=== PATIENT | female | born 1985 | race Caucasian/White ===

== ENCOUNTER 2020-07-01 15:25 | Outpatient (CLI) | payer OTHER ==
--- NOTE | 2020-07-01 16:44 | Ultrasound Report ---
PROCEDURE: OB First Trimester INDICATIONS: Positive test OUTSIDE/PRIOR DATING DATA: Last menstrual period (LMP): 05/12/2020. LMP-based estimated date of delivery (AMANDA): 02/16/2021. First dating scan (date and location): 07/01/2020. Estimated date of delivery (AMANDA) from first dating scan: 02/12/2021. TECHNIQUE: Real-time scanning was performed of the fetus and maternal pelvic organs, with image documentation. COMPARISON: None. FINDINGS: Embryo: There is a gestational sac at the uterine fundus measuring 4 cm, corresponding to gestationa l age of 9 weeks 3 days. Within the gestational sac there is an embryo with a crown-rump length of 1. 4 cm, corresponding to gestational age of 7 weeks 5 days.. Heart rate is detected at 168 bpm. Measurement variability in dating: +/- 4 weeks by LMP, +/- 7 days by mean sac diameter (use before 6 weeks gestation if crown-rump length not able to be measured), +/- 5 days by crown-rump length (6-12 weeks gestation). Maternal organs: Right ovary is normal. Left corpus luteum cyst noted. IMPRESSION: Single live intrauterine gestation with ultrasound estimated gestational age 7 weeks 5 days on the ba sis of the crown-rump length. Reviewed by: Surya Muñoz MD on 07/01/2020 4:42 PM PDT Approved by: Surya Muñoz MD on 07/01/2020 4:42 PM PDT Station ID: [id number]
== END 2020-07-01 15:26 | disposition home or self-care (01) ==
LOC: DI 15:25
PROVIDERS: ATTEND Nurse Practitioner Obstetrics & Gynecology
DX: Z32.01 Encounter for pregnancy test, result positive (principal)

== ENCOUNTER 2020-07-07 14:06 | Outpatient (CLI) | payer OTHER ==
[2020-07-07 16:28] LABS: MUDS CUTOFF CONCENTRATIONS CUTOFF CONC BELOW:
[2020-07-07 16:39] LABS: BILIRUBIN,URINE NEGATIVE (NEGATIVE); GLUCOSE, URINE (UA) NEGATIVE (NEGATIVE); KETONES,URINE (UA) NEGATIVE (NEGATIVE); LEUKOCYTE ESTERASE, URINE NEGATIVE (NEGATIVE); NITRITE,URINE NEGATIVE (NEGATIVE); OCCULT BLOOD,URINE NEGATIVE (NEGATIVE); PROTEIN,URINE NEGATIVE (NEGATIVE); UROBILINOGEN,URINE 0.2 (NORMAL) E.U./dL (NORMAL)
[2020-07-07 16:46] LABS: CLARITY,URINE CLEAR (CLEAR)
[2020-07-07 16:48] LABS: AMPHETAMINE SCREEN,URINE NEGATIVE (NEGATIVE); BARBITURATE SCREEN,UR NEGATIVE (NEGATIVE); BENZODIAZEPINES SCREEN, URINE NEGATIVE (NEGATIVE); COCAINE SCREEN URINE NEGATIVE (NEGATIVE); METHADONE SCREEN, URINE NEGATIVE (NEGATIVE); METHAMPHETAMINES SCREEN, URINE NEGATIVE (NEGATIVE); OPIATE SCREEN, URINE NEGATIVE (NEGATIVE); OXYCODONE SCREEN, URINE NEGATIVE (NEGATIVE); PROPOXYPHENE SCREEN, URINE NEGATIVE (NEGATIVE); THC CANNABINOID SCREEN, URINE NEGATIVE (NEGATIVE); TRICYCLIC ANTIDEPRESSANT,URINE NEGATIVE (NEGATIVE)
[2020-07-07 17:15] LABS: RBC,URINE None Seen /HPF (0-5); SQUAMOUS EPITHELIAL CELL,UR RARE Squamous (<= Few); WBC,URINE 0-3 /HPF (0-5)
[2020-07-07 17:16] LABS: BACTERIA,URINE None Seen /HPF (None Seen)
[2020-07-07 21:09] LABS: CHLAMYDIA TRACHOMATIS DNA NEGATIVE (NEGATIVE); NEISSERIA GONORRHOEAE DNA NEGATIVE (NEGATIVE); TRICHOMONAS VAGINALIS DNA NEGATIVE (NEGATIVE)
== END 2020-07-07 23:59 | disposition home or self-care (01) ==
LOC: LAB.R 14:06
PROVIDERS: ATTEND Obstetrics & Gynecology
DX: Z36.89 Encounter for other specified antenatal screening (principal)
CPT/HCPCS: 80306; 81001; 87086; 87491; 87591; 87661

== ENCOUNTER 2020-08-04 08:00 | Outpatient (CLI) | payer OTHER ==
[2020-08-04 18:02] LABS: BASOPHILS % (AUTO) 0.4 %; EOSINOPHILS # (AUTO) 0.1 10^3/uL (0.0-0.7); EOSINOPHILS % (AUTO) 1.9 %; HCT - HEMATOCRIT 36.3 % (37.0-47.0); HGB - HEMOGLOBIN 12.2 g/dL (12.0-16.0); LYMPHOCYTES # (AUTO) 1.6 10^3/uL (1.5-3.5); LYMPHOCYTES % (AUTO) 21.2 %; MEAN CORPUSCULAR HEMOGLOBIN 31.4 pg (27.0-31.0); MEAN CORPUSCULAR HGB CONC 33.6 g/dL (32.0-36.0); MEAN CORPUSCULAR VOLUME 93.3 fL (81.0-99.0); MEAN PLATELET VOLUME 10.2 fL (7.9-10.8); MONOCYTES # (AUTO) 0.4 10^3/uL (0.0-1.0); MONOCYTES % (AUTO) 5.9 %; NEUTROPHILS # (AUTO) 5.2 10^3/uL (1.5-6.6); NEUTROPHILS % (AUTO) 70.2 %; PLT - PLATELET COUNT 263 10^3/uL (130-450); RED BLOOD COUNT 3.89 10^6/uL (4.20-5.40); WHITE BLOOD COUNT 7.4 x10^3/uL (4.8-10.8)
[2020-08-05 12:50] LABS: HEPATITIS B SURFACE ANTIGEN NON-REACTIVE (NON-REACTIVE); HEPATITIS C ANTIBODY NON-REACTIVE (NON-REACTIVE)
[2020-08-05 15:16] LABS: HIV AG/AB 4TH GEN NON-REACTIVE (NON-REACTIVE)
== END 2020-08-04 23:59 | disposition home or self-care (01) ==
LOC: LAB.WCP 08:00
PROVIDERS: ATTEND Obstetrics & Gynecology
DX: Z34.80 Encounter for supervision of other normal pregnancy, unspecified trimester (principal); Z36.89 Encounter for other specified antenatal screening
CPT/HCPCS: 36415; 85025; 86592; 86762; 86787; 86803; 86850; 86900; 86901; 87340; 87389

== ENCOUNTER 2020-09-23 08:00 | Outpatient (CLI) | payer OTHER | END 2020-09-23 23:59 | disposition home or self-care (01) | LOC: LAB.WCP 08:00 | PROVIDERS: ATTEND Obstetrics & Gynecology | DX: Z34.80 Encounter for supervision of other normal pregnancy, unspecified trimester (principal) | CPT/HCPCS: 36415; 81220; 81599; 82105 ==

== ENCOUNTER 2020-09-29 15:25 | Outpatient (CLI) | payer OTHER ==
--- NOTE | 2020-09-30 17:27 | Ultrasound Report ---
PROCEDURE: OB Detailed Eval INDICATIONS: SUPERVISION OF OUTSIDE/PRIOR DATING DATA: Last menstrual period (LMP): 05/12/2020. LMP-based estimated date of delivery (AMANDA): 02/16/2021. First dating scan (date and location): 07/01/2020. Estimated date of delivery (AMANDA) from first dating scan: 02/12/2021. The below data below was generated using the above AMANDA of 02/12/2021 TECHNIQUE: Real-time scanning was performed of the fetus, with image documentation and biometric measurements. Endovaginal scanning: Not needed COMPARISON: 07/01/2020 OB ultrasound FINDINGS: General: A single living intrauterine gestation is present. Presentation: Variable at this time Placenta: Placental position is posterior, without previa. Amniotic fluid index: 13.0 cm, normal for gestational age. heart rate: 160 beats per minute. Maternal cervical canal: 6.2 cm long; normal length is 2.5 cm or more. biometrics: Biparietal diameter: 4.8 cm, 20 weeks 3 days Head circumference: 17.7 cm, 20 weeks 1 day Abdominal circumference: 14.7 cm, 20 weeks 0 days Femur length: 3.7 cm, 21 weeks 4 days Estimated gestational age from initial scan: 20 weeks 2 days. Composite gestational age from present scan: 20 weeks 2 days Estimated weight and percentile: 3677 g, 66th percentile Measurement variability in biometric dating: +/- 10 days from 12-20 weeks gestation, +/- 2 weeks from 20-30 weeks gestation, +/- 3 weeks at 30 weeks gestation or later. Anatomic survey: Neuro: Ventricles are normal at less than 10 mm. Cisterna magna is normal at 3-11 mm. Cerebellum i s normal in size and morphology. Nuchal skin fold: Normal at less than 6 mm between 14 and 20 weeks gestational age. Face: Nose and lips, facial profile are normal. Spine: No evidence for spina bifida. Heart: 4-chambered heart is present, with normal ventricular outflow tracts. Diaphragm: Diaphragm is intact. Stomach: Left-sided stomach is present. Kidneys: No hydronephrosis. Normal is less than 5 mm in 2nd trimester, less than 7 mm in 3rd trimester. Cord: 3 vessel cord has orthotopic insertion. Bladder: Normal in size. Extremities: All 4 extremities are visualized. IMPRESSION: Appropriate interval growth, no anomaly seen. The delivery date is projected to be centered on 02/12/2021. Currently normal amniotic fluid volume. positioning was variable over the course of the examination. Reviewed by: Pascual Watters MD on 09/30/2020 5:26 PM PDT Approved by: Pascual Watters MD on 09/30/2020 5:26 PM PDT Station ID: [id number]
== END 2020-09-29 15:26 | disposition home or self-care (01) ==
LOC: DI 15:25
PROVIDERS: ATTEND Obstetrics & Gynecology
DX: Z34.82 Encounter for supervision of other normal pregnancy, second trimester (principal); Z36.89 Encounter for other specified antenatal screening

== ENCOUNTER 2020-10-13 15:33 | Outpatient (CLI) | payer OTHER | END 2020-10-13 15:34 | disposition home or self-care (01) | LOC: LAB.N 15:33 | PROVIDERS: ATTEND Obstetrics & Gynecology | DX: Z34.80 Encounter for supervision of other normal pregnancy, unspecified trimester (principal) | CPT/HCPCS: 81220; 81599 ==

== ENCOUNTER 2020-11-22 07:13 | Outpatient (CLI) | payer OTHER ==
[2020-11-22 11:35] LABS: HCT - HEMATOCRIT 37.3 % (37.0-47.0); HGB - HEMOGLOBIN 12.4 g/dL (12.0-16.0); MEAN CORPUSCULAR HEMOGLOBIN 30.7 pg (27.0-31.0); MEAN CORPUSCULAR HGB CONC 33.2 g/dL (32.0-36.0); MEAN CORPUSCULAR VOLUME 92.3 fL (81.0-99.0); MEAN PLATELET VOLUME 9.3 fL (7.9-10.8); RED BLOOD COUNT 4.04 10^6/uL (4.20-5.40); RED CELL DISTRIBUTION WIDTH 12.7 % (12.0-15.0); WHITE BLOOD COUNT 8.3 x10^3/uL (4.8-10.8)
== END 2020-11-22 07:14 | disposition home or self-care (01) ==
LOC: LAB.N 07:13
PROVIDERS: ATTEND Obstetrics & Gynecology
DX: Z34.80 Encounter for supervision of other normal pregnancy, unspecified trimester (principal)
CPT/HCPCS: 36415; 82950; 85027

== ENCOUNTER 2021-01-19 08:00 | Outpatient (CLI) | payer OTHER | END 2021-01-19 23:59 | disposition home or self-care (01) | LOC: LAB 08:00 | PROVIDERS: ATTEND Obstetrics & Gynecology | DX: Z34.80 Encounter for supervision of other normal pregnancy, unspecified trimester (principal); Z36.85 Encounter for antenatal screening for Streptococcus B | CPT/HCPCS: 87797 ==

== ENCOUNTER 2021-02-09 08:31 | Outpatient (CLI) | payer OTHER ==
[2021-02-09] MEDS ORDERED: miSOPROStoL 100 MCG TABLET PO ONE (11:06)
--- NOTE | 2021-02-09 11:21 | PROVIDER PROGRESS NOTE ---
- HPI Chief Complaint: Other (Elective Cervical ripening.) Current : Vital Signs Temperature 98.4 F 02/09/21 08:44 Heart Rate 106 H 02/09/21 08:44 Respiratory Rate 18 02/09/21 08:44 Blood Pressure 120/78 02/09/21 08:44 O2 Saturation 98 02/09/21 08:44 Temperature 98.4 F 02/09/21 08:44 Heart Rate 106 H 02/09/21 08:44 Respiratory Rate 18 02/09/21 08:44 Blood Pressure 120/78 02/09/21 08:44 O2 Saturation 98 02/09/21 08:44 - Exam 35yo at 39 0/7 here to begin outpatient cervical ripening. Patient was consented by Dr. Leo in the office. Patient is not feeling any contractions. No SROM or vaginal bleeding. Patient reports good movement. Consents signed. Bedside ultrasound performed Vertex presentation present. CX: Closed/long/-3/Posterior A-IUP 39 0/7 P- Cytotec 50mcg po, monitor for 4 hours. Continuous monitoring. Discharge to home after 4 hours if does not progress in to labor.
--- NOTE | 2021-02-09 11:24 | PROCEDURE REPORT ---
- HPI Diagnosis/Indication for NST: Other (Here to begin Cervical ripening.) Vital Signs Temperature 98.4 F 02/09/21 08:44 Heart Rate 106 H 02/09/21 08:44 Respiratory Rate 18 02/09/21 08:44 Blood Pressure 120/78 02/09/21 08:44 O2 Saturation 98 02/09/21 08:44 Temperature 98.4 F 02/09/21 08:44 Heart Rate 106 H 02/09/21 08:44 Respiratory Rate 18 02/09/21 08:44 Blood Pressure 120/78 02/09/21 08:44 O2 Saturation 98 02/09/21 08:44 - NST Procedure Patient presented to begin cervical ripening. NST: 140 with moderate variability. Accelerations 15X15 present. No decelerations. Reactive NST, Category I monitor strip.
[2021-02-09 11:26] VITALS: BP 111/70
--- NOTE | 2021-02-09 17:24 | PROVIDER PROGRESS NOTE ---
Subjective - Prog Note Date Prog Note Date: 02/09/21 Prog Note Time: 17:16 - Subjective Pt reports feeling: No change Objective - Vital Signs/Intake & Output Vital Signs: Vital Signs x48h Pulse Resp BP 02/09/21 11:25 72 18 111/70 - Other Results/Comments Other Results/Comments: S- Patient is resting comfortably and eating her dinner. Patient reporting good movement. She feels contractions, mild. Discussed that heart tones have been good and with decelerations for 4 hours now. Discussed that we will not repeat Cytotec tomorrow. Patient is to call Sunday at 7:30am to see if she can be brought in for her induction. She inquired as to how the induction will proceed on Sunday and I explained it will depend on how dilated her cervix is at that time. We reviewed labor precautions and that she can call or come in if she feels labor is progressing. Monitor strip: 130 with moderate variability and accelerations. No decelerations for over 3 hours. Contractions have spaced out significantly. Category I monitor strip. A-IUP 39 0/7 Elective Induction. p- Discharge to home
== END 2021-02-09 17:15 | disposition home or self-care (01) ==
LOC: WFO 08:31 → FBP 08:33 → WFO 17:15
PROVIDERS: ATTEND Obstetrics & Gynecology
DX: O61.0 Failed medical induction of labor (principal); Z3A.39 39 weeks gestation of pregnancy
CPT/HCPCS: 59025; A9270

== ENCOUNTER 2021-02-10 06:46 | Inpatient (IN) | payer OTHER ==
[2021-02-10] MEDS ORDERED: OXYTOCIN/SODIUM CHLORIDE 500 ML IV PRN (08:56)
[2021-02-10] MEDS ORDERED: ONDANSETRON 4 MG/2 ML VIAL IVP PRN ×2 (08:56→10:50)
[2021-02-10] MEDS ORDERED: fentaNYL 100 MCG/2 ML VIAL IVP PRN (08:56)
[2021-02-10] MEDS ORDERED: SODIUM CHLORIDE FLUSH 0.9% 10 ML SYRINGE IVP PRN (08:56)
[2021-02-10] MEDS ORDERED: METHYLERGONOVINE 0.2 MG/ML VIAL IM PRN (08:56)
[2021-02-10] MEDS ORDERED: CARBOPROST TROMETHAMINE 250 MCG/ML AMP IM PRN (08:56)
[2021-02-10] MEDS ORDERED: hydrALAZINE INJ 20 MG/ML VIAL IVP PRN (08:56)
[2021-02-10] MEDS ORDERED: LABETALOL 20 MG/4 ML SYRINGE IVP PRN (08:56)
[2021-02-10] MEDS ORDERED: TRANEXAMIC ACID IN NACL 1,000 MG/100 ML BAG IV PRN (08:56)
[2021-02-10] MEDS ORDERED: OXYTOCIN 10 UNIT/ML VIAL IM PRN (08:56)
[2021-02-10] MEDS ORDERED: miSOPROStoL 200 MCG TABLET BC PRN (08:56)
[2021-02-10] MEDS ORDERED: LIDOCAINE-MPF 1% 30 ML VIAL ID PRN (08:56)
[2021-02-10] MEDS ORDERED: SODIUM CHLORIDE FLUSH 0.9% 10 ML SYRINGE IVP SCH (09:00)
[2021-02-10 09:33] LABS: BASOPHILS % (AUTO) 0.2 %; EOSINOPHILS % (AUTO) 0.1 %; HCT - HEMATOCRIT 38.6 % (37.0-47.0); HGB - HEMOGLOBIN 13.2 g/dL (12.0-16.0); LYMPHOCYTES # (AUTO) 1.2 10^3/uL (1.5-3.5); LYMPHOCYTES % (AUTO) 8.1 %; MEAN CORPUSCULAR HEMOGLOBIN 29.5 pg (27.0-31.0); MEAN CORPUSCULAR HGB CONC 34.2 g/dL (32.0-36.0); MEAN CORPUSCULAR VOLUME 86.2 fL (81.0-99.0); MEAN PLATELET VOLUME 9.1 fL (7.9-10.8); MONOCYTES # (AUTO) 0.5 10^3/uL (0.0-1.0); MONOCYTES % (AUTO) 3.6 %; NEUTROPHILS # (AUTO) 12.5 10^3/uL (1.5-6.6); NEUTROPHILS % (AUTO) 87.4 %; PLT - PLATELET COUNT 213 10^3/uL (130-450); RED BLOOD COUNT 4.48 10^6/uL (4.20-5.40); RED CELL DISTRIBUTION WIDTH 12.6 % (12.0-15.0); WHITE BLOOD COUNT 14.3 x10^3/uL (4.8-10.8)
[2021-02-10] MEDS ORDERED: BUPIVACAINE 0.25% PF 10 ML VIAL ONE (10:14)
[2021-02-10] MEDS ORDERED: ROPIVACAINE 0.2% 200 MG/100 ML BAG EP ONE (10:14)
[2021-02-10] MEDS ORDERED: fentaNYL 100 MCG/2 ML VIAL ONE (10:14)
[2021-02-10] MEDS: LACTATED RINGERS 1,000 ML IV SCH ×2 (10:18→14:08)
[2021-02-10] MEDS ORDERED: NALBUPHINE 10 MG/ML AMP IVP PRN (10:50)
[2021-02-10] MEDS ORDERED: ROPIVACAINE 0.2% 200 MG/100 ML BAG EP PRN (10:50)
[2021-02-10] MEDS ORDERED: diphenhydrAMINE INJ 50 MG/ML VIAL IVP PRN (10:50)
--- NOTE | 2021-02-10 10:52 | ANESTHESIA ---
Pre-Anesthesia VS, & Labs - Diagnosis active labor - Procedure labor epidural Vital Signs: Temp Pulse Resp BP Pulse Ox 36.6 C 63 16 126/82 H 98 02/10/21 09:27 02/10/21 09:27 02/10/21 09:27 02/10/21 09:27 02/10/21 09:00 Height: 5 ft 4 in Weight (kg): 88.451 kg Body Mass Index: 33.5 BMI Classification: Obese - Is Patient ?: Yes - Lab Results Current Lab Results: Laboratory Tests 02/10/21 09:51: Blood Type O POSITIVE, Antibody Screen NEGATIVE 02/10/21 09:26: WBC 14.3 H, RBC 4.48, Hgb 13.2, Hct 38.6, MCV 86.2, MCH 29.5, MCHC 34.2, RDW 12.6, Plt Count 213, MPV 9.1, Neut # (Auto) 12.5 H, Lymph # (Auto) 1.2 L, Sandoval # (Auto) 0.5, Eos # (Auto) 0.0, Baso # (Auto) 0.0, Absolute Nucleated RBC 0.00, Nucleated RBC % 0.0 Lab results reviewed: Yes Fish Bones: 02/10/21 09:26 Home Medications and Allergies Active Medications Carboprost Tromethamine (Carboprost Tromethamine 250 Mcg/Ml Amp) 250 mcg IM Q15M PRN PRN Reason: Step 4: Hemorrhage protocol Stop: 02/15/21 08:59 Fentanyl (Fentanyl 100 Mcg/2 Ml Vial) 50 mcg IVP Q1H PRN PRN Reason: PAIN Hydralazine HCl (Hydralazine Inj 20 Mg/Ml Vial) 10 mg IVP .ONCE PRN; Protocol PRN Reason: Step 9 of Labetalol protocol Stop: 02/15/21 09:03 Lactated Ringer's (Lr) 1,000 mls @ 150 mls/hr IV .Q6H40M YUNIOR Oxytocin/Sodium Chloride (Pitocin/Sodium Chloride) 500 mls @ 999 mls/hr IV PRN PRN; Protocol PRN Reason: POST- HEMORR PREVENTION Stop: 02/15/21 08:59 Tranexamic Acid (Tranexamic 1,000 Mg/100ml-Nacl) 1,000 mg in 100 mls @ 600 mls/hr IV .ONCE PRN PRN Reason: EBL >1200mL and within 3hr Stop: 02/15/21 08:59 Labetalol HCl (Labetalol 20 Mg/4 Ml Syringe) 20 - 80 mg IVP Q10M PRN; Protocol PRN Reason: SBP >160 or DBP >110 Lidocaine HCl (Lidocaine-Mpf 1% 30 Ml Vial) 30 ml ID .ONCE PRN PRN Reason: PERINEAL REPAIR Stop: 02/15/21 08:59 Methylergonovine Maleate (Methylergonovine 0.2 Mg/Ml Vial) 0.2 mg IM .ONCE PRN PRN Reason: Step 2: Hemorrhage protocol Stop: 02/15/21 08:59 Misoprostol (Misoprostol 200 Mcg Tablet) 800 mcg BC .ONCE PRN PRN Reason: Step 3: Hemorrhage protocol Stop: 02/15/21 08:59 Ondansetron HCl (Ondansetron 4 Mg/2 Ml Vial) 4 mg IVP Q4H PRN PRN Reason: Nausea / Vomiting Oxytocin (Oxytocin 10 Unit/Ml Vial) 10 unit IM .ONCE PRN PRN Reason: Step one: If no IV access Stop: 02/15/21 08:59 Sodium Chloride (Sodium Chloride Flush 0.9% 10 Ml Syringe) 10 ml IVP PRN PRN PRN Reason: NEEDED PER PROVIDER ORDERS Sodium Chloride (Sodium Chloride Flush 0.9% 10 Ml Syringe) 10 ml IVP 0100,0900,1700 YUNIOR Allergies/Adverse Reactions: Allergies Allergy/AdvReac Type Severity Reaction Status Date / Time No Known Drug Allergies Allergy Verified 02/09/21 11:08 Anes History & Medical History - Anesthetic History Anesthesia Complications: reports: No previous complications Family history of Anesthesia Complications: Denies Family history of Malignant Hyperthermia: Denies - Medical History Cardiovascular: reports: None Pulmonary: reports: None Gastrointestinal: reports: None Urinary: reports: None Neuro: reports: None Musculoskeletal: reports: None Endocrine/Autoimmune: reports: None Blood Disorders: reports: None Skin: reports: None Smoking Status: Former smoker Psychosocial: reports: No issues indicated History of Cancer?: No Exam General: Alert, Oriented x3, Cooperative, No acute distress Dental: WNL Plan Anesthesia Type: Epidural Consent for Procedure(s) Verified and Reviewed: Yes Code Status: Attempt Resuscitation ASA classification: 2-Mild systemic disease Is this case an emergency?: No
--- NOTE | 2021-02-10 11:09 | HISTORY & PHYSICAL EXAMINATION ---
Admit History - : 2 Parity: 1 Premature: 0 Ectopic: 0 : 0 Care: positive: Other ([facility]) Risk/History: positive: None Complications This : positive: Other (Advanced Maternal Age.) Smoking Status: Never smoker - Mother's Labs Mother's Blood Type: positive: O Mother's RH: positive: Positive GBS: positive: Group B Step Negative Rubella Status: positive: Immune Meds/Allgy - Allergies Allergies/Adverse Reactions: Allergies Allergy/AdvReac Type Severity Reaction Status Date / Time No Known Drug Allergies Allergy Verified 02/09/21 11:08 Review of Systems - Constitutional Constitutional: denies: Fatigue, Fever - Cardiovascular Cariovascular: denies: Irregular heart rate, Palpitations - Respiratory Respiratory: denies: Cough, Sputum production, Wheezing - Gastrointestinal Gastrointestinal: denies: Abdominal pain - Genitourinary Genitourinary: denies: Dysuria, Frequency, Urgency - Integumentary Integumentary: denies: Rash Physical - Abdominal Exam Vital Signs: Temp Pulse Resp BP Pulse Ox 97.9 F 63 16 126/82 H 98 02/10/21 09:27 02/10/21 09:27 02/10/21 09:27 02/10/21 09:27 02/10/21 09:00 Contraction Frequency (min/apart): 2-4 Contraction Intensity: positive: Moderate Uterine Resting Tone: positive: Soft - Monitoring Heart Rate Baseline: 130 Moderate variability Strip Review: positive: Category I - Presentation Presentation: positive: Vertex - Vaginal Exam Membranes: positive: Membranes intact Dilation (in cm): 3-4 Effacement (%): 80 Station: positive: -2 Cervical Position: positive: Midposition - Speculum Exam Speculum Exam Performed: positive: No - Other Notes Labor Progress Note/Additional Text: Patient was admitted for regular contractions that became more intense. Patient had epidural anesthesia placed. Patient is now comfortable.
[2021-02-10] MEDS ORDERED: DOCUSATE SODIUM 100 MG CAPSULE PO PRN (12:56)
[2021-02-10] MEDS ORDERED: SIMETHICONE CHEW 80 MG TABLET PO PRN (12:56)
[2021-02-10] MEDS ORDERED: HYDROCORTISONE 1% CREAM 28 GM TUBE PR PRN (12:56)
[2021-02-10] MEDS ORDERED: ONDANSETRON ODT 4 MG TABLET TL PRN (12:56)
[2021-02-10] MEDS ORDERED: LACTATED RINGERS 1,000 ML IV SCH (13:00)
--- NOTE | 2021-02-10 13:03 | DELIVERY NOTE ---
Delivery Note - Infant Delivery Method Infant Delivery Method: positive: Spontaneous vaginal delivery - Cervical Ripening Method Cervical Ripening Method: positive: Misoprostil - Presentation Presentation: positive: Vertex, Compound - Nuchal Cord Nuchal Cord: positive: None - Anesthetic Anesthetic Type: - Amniotic Fluid Description Amniotic Fluid Description: positive: Clear - Episiotomy Type Episiotomy Type: positive: None - Laceration Laceration: positive: 2nd degree, Perineal - Suture Suture Type: positive: Vicryl Suture Size: positive: 3-0 - Delivery Outcome Delivery Outcome: positive: Livebirth - [place]: positive: Placed in direct skin contact with mother, Suctioned, Bulb syringe, Stimulated, Warmed, [place] used sex: positive: Female - Cord Cord: positive: 3 vessels - Placenta Placenta: positive: Intact, Expressed - Estimated Blood Loss Estimated Blood Loss (in cc): 150 - Post Delivery Events Post Delivery Events: positive: No post delivery events - Delivery Comments (Free Text/Narrative) Delivery Comments (Free Text/Narrative): STAGE I LABOR: Patient is a 35 yo at 39+1 wga who presented with spontaneous labor. She had been seen as an outpatient on 02/09/21 for outpatient cervical ripening. She had received misoprostol 50 mcg BC x1 and was monitored for 4 hours and then discharged to home. She presented at 7:10 am on 02/10/21 with painful contractions. Initial SVE was 3/80/-2. She progressed to 9 cm by 11:30 am. Received and epidural for pain management. She was GBS negative. No indication for augmentation. She underwent artificial rupture of membranes at 11:54 am, notable for passage of scant, clear fluid. Complete at 12:00. Category I tracing though out Stage I labor. STAGE II: Patient pushed well for 25 minutes to deliver a viable female at 12:25. delivered from ALTHEA presentation with a compound hand presentation. No nuchal cord. Right shoulder anterior and delivered without difficulty to maternal abdomen. Cord was clamped x2 and cut after delaying for cessation of cord pulsations. Weight pending. Apgars 7/9 STAGE III: Placenta delivered at 12:32 with manual expression. It was examined and found to be intact. Perineum was examined and a small midline 2nd degree laceration was noted. It was repaired with 3-0 Vicryl in the usual sterile fashion in layers. Good hemostasis was noted. EBL 150 cc Procedure was well tolerated and without complication.
[2021-02-10] MEDS: ACETAMINOPHEN 500 MG TABLET PO PRN (18:22)
[2021-02-10] MEDS: IBUPROFEN 600 MG TABLET PO PRN (18:23)
[2021-02-11] MEDS: ACETAMINOPHEN 500 MG TABLET PO PRN ×4 (00:22→22:08)
[2021-02-11] MEDS: IBUPROFEN 600 MG TABLET PO PRN ×4 (00:22→20:07)
--- NOTE | 2021-02-11 18:56 | PROVIDER PROGRESS NOTE ---
Subjective - Prog Note Date Prog Note Date: 02/11/21 Prog Note Time: 18:00 - Subjective Subjective: Patient is up and ambulating, tolerating po, and voiding. Pain is well managed with pain medications. Objective - Vital Signs/Intake & Output Reviewed Vital Signs: Yes Vital Signs: Vital Signs x48h Temp Pulse Resp BP Pulse Ox 02/11/21 17:45 98.2 F 72 20 106/58 L 98 02/11/21 14:00 97.7 F 81 16 124/87 H 98 Intake & Output: Intake & Output 02/08/21 02/09/21 02/10/21 02/11/21 23:59 23:59 23:59 23:59 Intake Total 4699.5 1700 Output Total 1600 Balance 3099.5 1700 - Objective General Appearance: positive: No acute distress Neck: positive: Nml inspection Respiratory: positive: No respiratory distress, Breath sounds nml Cardiovascular: positive: Regular rate & rhythm Abdomen: positive: Non-tender, Other (S&NT/ND and FF below umbi) Back: positive: Nml inspection Skin: positive: Color nml Extremities: positive: Non-tender Neurologic/Psychiatric: positive: Oriented x3 - Lab Results Fish Bones: 02/10/21 09:26 Assessment/Plan - Problem List (1) Vaginal delivery Impression: PPD#1: Doing well Routine pp care Anticipate DC home tomorrow O pos
[2021-02-12] MEDS: IBUPROFEN 600 MG TABLET PO PRN (01:56)
[2021-02-12] MEDS: ACETAMINOPHEN 500 MG TABLET PO PRN (06:51)
[2021-02-12 08:13] VITALS: BP 112/74
--- NOTE | 2021-02-12 11:14 | Discharge Plan ---
Discharge Plan Problem Reviewed?: Yes Disposition: Home, Self Care Condition: Good Prescriptions: Acetaminophen [Acetaminophen Extra Strength] 1,000 mg PO Q8H PRN #60 tablet PRN Reason: Pain Docusate Sodium 100Mg Capsule [Colace 100Mg Capsule] 100 - 200 mg PO BID PRN #60 cap PRN Reason: Constipation Ibuprofen [Motrin] 600 mg PO Q6H PRN #60 tab PRN Reason: Pain Acetaminophen/Cod 300/30 [Tylenol #3] 1 each PO Q4-6H PRN #16 tablet PRN Reason: Severe Pain Diet: Regular Activity Restrictions: Additional Comments (Nothing in the vagina for 6 weeks: No intercourse, tampons, douching Call for: -Fever greater than 100.5 - Pain that does not improve with pain medication -Heavy bleeding in which you are soaking a pad an hour for 2 hours in a row No tub baths or hot tubs for 4 weeks) Shower Restrictions: No (see above) Driving Restrictions: Yes (No driving on narcotics (codeine)) Assessment: Ibuprofen 600 mg by mouth every 6 hours as needed for pain Acetaminophen 500-1000 mg by mouth every 8 hours as needed for pain Docusate 100-200 mg by mouth twice a day as needed for constipation DO NOT TAKE TYLENOL/ACETAMINOPHEN WITH CODEINE WITH ADDITIONAL ACETAMINOPHEN No Smoking: If you smoke, Please STOP! Call for help. Follow-up with: Ryanne Leo MD [Provider Admit Priv/Credential] -
--- NOTE | 2021-02-12 11:14 | DISCHARGE SUMMARY ---
"Discharge Summary Admit Date: 02/10/21 Discharge Date: 02/12/21 Discharging Provider: Felipa Condition at Discharge: Good Discharge Disposition: 01 Home, Self Care - DIAGNOSES Admission Diagnoses: IUP at 39+1 wga Labor Discharge Diagnoses with Status of Each Condition: Same and delivery of term gestation - HPI History of Present Illness: Patient is a 35 yo admitted at 39+1 wga who presented with spontaneous labor. She had been seen as an outpatient on 02/09/21 for outpatient cervical ripening. She had received misoprostol 50 mcg BC x1 and was monitored for 4 hours and then discharged to home. - CONSULTS | PROCEDURES Procedures: spontaneous vaginal delivery - HOSPITAL COURSE Hospital Course: STAGE I LABOR: Patient presented at 7:10 am on 02/10/21 with painful contractions. Initial SVE was 3/80/-2. She progressed to 9 cm by 11:30 am. R eceived and epidural for pain management. She was GBS negative. No indication for augmentation. She underwent artificial rupture of membranes at 11:54 am, notable for passage of scant, clear fluid. Complete at 12:00. Category I tracing though out Stage I labor. STAGE II: Patient pushed well for 25 minutes to deliver a viable female infant at 12:25. delivered from ALTHEA presentation with a compound hand presentation. No nuchal cord. Right shoulder anterior and delivered without difficulty to maternal abdomen. Cord was clamped x2 and cut after delaying for cessation of cord pulsations. Weight pending. Apgars 7/9 STAGE III: Placenta delivered at 12:32 with manual expression. It was examined and found to be intact. Perineum was examined and a small midline 2nd degree laceration was noted. It was repaired with 3-0 Vicryl in the usual sterile fashion in layers. Good hemostasis was noted. EBL 150 cc Procedure was well tolerated and without complication. course was uncomplicated for mother and baby. Patient was meeting goals for discharge by PPD#2 and was discharged to home. Rh positive and Rubella immune Laboring provider: Jose A Saeed provider: Felipa Apgars 7/9 BW 3050 g - ALLERGIES Allergies/Adverse Reactions: Allergies Allergy/AdvReac Type Severity Reaction Status Date / Time No Known Drug Allergies Allergy Verified 02/09/21 11:08 - MEDICATIONS Home Medications: Ambulatory Orders Medication Instructions Recorded Confirmed Acetaminophen [Acetaminophen Extra 1,000 mg PO Q8H PRN #60 tablet 02/11/21 Strength] Docusate Sodium 100Mg Capsule 100 - 200 mg PO BID PRN #60 cap 02/11/21 [Colace 100Mg Capsule] Ibuprofen [Motrin] 600 mg PO Q6H PRN #60 tab 02/11/21 Acetaminophen/Cod 300/30 [Tylenol 1 each PO Q4-6H PRN #16 tablet 02/12/21 #3] - PHYSICAL EXAM AT DISCHARGE General Appearance: positive: No acute distress Neck: positive: Nml inspection Respiratory: positive: No respiratory distress, Breath sounds nml Cardiovascular: positive: Regular rate & rhythm Abdomen: positive: Non-tender, Other (S&NT/ND, FF below umbi) Back: positive: Nml inspection Skin: positive: Color nml Extremities: positive: Non-tender, No pedal edema Neurologic/Psychiatric: positive: Oriented x3 - LABS Result Diagrams: 02/10/21 09:26 - FOLLOW UP Follow Up: Felipa in week - TIME SPENT Time Spent in Discharge (Minutes): 30"
== END 2021-02-12 12:20 | disposition home or self-care (01) | DRG 807 ==
LOC: WFO 06:46 → FBP 06:51 → WFO 08:55 → FBP 08:56 → OBS 19:24
PROVIDERS: ADMIT Obstetrics & Gynecology; ATTEND Obstetrics & Gynecology
PROC: 10E0XZZ Delivery of Products of Conception, External Approach (ICD-10-PCS; principal; 2021-02-10)
PROC: 10907ZC Drainage of Amniotic Fluid, Therapeutic from Products of Conception, Via Natural or Artificial Opening (ICD-10-PCS; 2021-02-10)
DX: O32.6XX0 Maternal care for compound presentation, not applicable or unspecified (principal); Z37.0 Single live birth; O70.1 Second degree perineal laceration during delivery; Z3A.39 39 weeks gestation of pregnancy
CPT/HCPCS: 36415; 59025; 85025; 86850; 86900; 86901; 99215